=== PATIENT | male | born 1985 | race Asian ===

== ENCOUNTER 2017-10-11 09:07 | Emergency (ER) | payer MEDICAID ==
[~2017-10-11] VITALS: Ht 172.7 cm; Wt 59.1 kg
[2017-10-11] MEDS ORDERED: LEVE500T53 PO (09:13)
[2017-10-11] MEDS ORDERED: CLON1 PO (09:13)
[2017-10-11] MEDS ORDERED: ENOX40DI9 SQ (09:13)
[2017-10-11 10:32] LABS: BASOPHILS # (AUTO) 0.04 K/uL (0.00-0.20); BASOPHILS % (AUTO) 0.8 % (0.0-2.0); EOSINOPHILS # (AUTO) 0.29 K/uL (0.00-0.70); EOSINOPHILS % (AUTO) 6.02 % (1.0-6.0); HEMATOCRIT 37.7 % (41-53); HEMOGLOBIN 12.3 g/dL (13.5-17.5); LYMPHOCYTES % (AUTO) 21.3 % (22.0-44.0); MEAN CORPUSCULAR HEMOGLOBIN 26.5 pg (26.0-34.0); MEAN CORPUSCULAR HGB CONC 32.7 G/dL (31.0-37.0); MEAN CORPUSCULAR VOLUME 81 fL (80-100); MONOCYTES # (AUTO) 0.4 K/uL (0.1-1.0); MONOCYTES % (AUTO) 8.9 % (2.0-9.0); NEUTROPHILS % (AUTO) 63.1 % (40.0-70.0); PLATELET COUNT (AUTO) 255 K/uL (150-450); RED BLOOD CELL COUNT(AUTO) 4.65 MIL/uL (4.50-5.90); RED CELL DISTRIBUTION WIDTH 14.8 % (11.5-14.5); WHITE BLOOD COUNT (AUTO) 4.8 K/uL (4.5-11.0)
[2017-10-11 10:49] LABS: ANION GAP 8 mmol/L (8-16); CALCIUM, TOTAL 8.6 mg/dL (8.8-10.5); CARBON DIOXIDE 28 mmol/L (22-29); CHLORIDE 103 mmol/L (98-107); CREATININE 0.68 mg/dL (0.60-1.30); GLOMERULAR FILTR. RATE CALC > 60 mL/min (>60); POTASSIUM 4.1 mmol/L (3.5-5.1); SODIUM SERUM 139 mmol/L (136-145); UREA NITROGEN, BLOOD 15 mg/dL (7-18)
[2017-10-11 10:54] LABS: ALANINE AMINOTRANSFERASE 28 U/L (12-78); ASPARTATE AMINOTRANSFERASE 21 U/L (15-37); BILIRUBIN,TOTAL 0.2 mg/dL (0.1-1.0)
[2017-10-11 10:55] LABS: LACTIC ACID 0.9 mmol/L (0.4-2.0)
[2017-10-11 14:33] VITALS: BP 129/78
== END 2017-10-11 14:41 | disposition home or self-care (01) ==
LOC: EMS 09:08
DX: R04.2 Hemoptysis (principal); I25.2 Old myocardial infarction; Z86.11 Personal history of tuberculosis; Z88.5 Allergy status to narcotic agent; Z88.8 Allergy status to other drugs, medicaments and biological substances
CPT/HCPCS: 71020; 83605; 87015; 87040; 99285

== ENCOUNTER 2020-06-30 22:28 | Inpatient (IN) | payer MEDICAID ==
[~2020-06-30] VITALS: Ht 172.7 cm; Wt 60.8 kg
[~2020-06-30 22:28] MED LIST: ENOX80DI9 SQ; FLUO-191 PO; LEVE500T53 PO; OLAN5TAB2 PO
[2020-07-01] VITALS (13 sets, daily range): BP systolic 96–139; BP diastolic 58–89
[2020-07-01] MEDS ORDERED: ZOLPIDEM TARTRATE 10 MG TABLET PO PRN (02:00)
[2020-07-01] MEDS ORDERED: HALOPERIDOL 5 MG TABLET PO PRN (02:00)
[2020-07-01] MEDS ORDERED: LORazepam 2 MG TABLET PO PRN (02:00)
[2020-07-01] MEDS ORDERED: PNEUMOCOCCAL VACCINE POLYVALENT 0.5 ML VIAL [PPSV23] IM ONE (06:00)
[2020-07-01] MEDS ORDERED: ACETAMINOPHEN 325 MG TABLET PO PRN (08:00)
[2020-07-01] MEDS ORDERED: DOCUSATE SODIUM 100 MG CAPSULE PO PRN (08:00)
[2020-07-01] MEDS ORDERED: PETROLATUM,WHITE 28 GM JELLY TP PRN (08:00)
[2020-07-01] MEDS ORDERED: LOPERAMIDE HCL 2 MG CAPSULE PO PRN (08:00)
[2020-07-01] MEDS ORDERED: NICOTINE 14 MG/24 HOUR PATCH TD PRN (08:00)
[2020-07-01] MEDS ORDERED: MAG HYDROX/AL HYDROX/SIMETH ES 30 ML SUSPENSION UDCUP PO PRN (08:00)
[2020-07-01] MEDS ORDERED: GuaiFENesin/D-METHORPHAN [SUGAR-FREE] 200-20MG/10 ML SYRUP UDCUP PO PRN (08:00)
[2020-07-01] MEDS ORDERED: CloNIDine HCL 0.1 MG TABLET PO PRN (08:00)
[2020-07-01] MEDS ORDERED: MAGNESIUM HYDROXIDE SUSPENSION 30 ML UDCUP PO PRN (08:00)
[2020-07-01] MEDS ORDERED: ONDANSETRON HCL 4 MG TABLET PO PRN (08:00)
[2020-07-01] MEDS ORDERED: ALBUTEROL SULFATE HFA 90 MCG/PUFF 8 GM INHALER IH PRN (08:00)
[2020-07-01] MEDS ORDERED: IBUPROFEN 400 MG TABLET PO PRN (08:00)
[2020-07-01 08:30] LABS: GLUCOMETER DEV NAME(LOC) BV2S.; GLUCOSE,POINT OF CARE 128 MG/DL (70-110)
[2020-07-01] MEDS ORDERED: LevETIRAcetam 500 MG TABLET PO ONE (09:00)
[2020-07-01] MEDS ORDERED: LORazepam 2 MG/ML VIAL IM PRN (09:00)
[2020-07-01] MEDS ORDERED: LevETIRAcetam 500 MG TABLET PO SCH (09:00)
[2020-07-01] MEDS: LevETIRAcetam 500 MG TABLET PO SCH (17:03)
[2020-07-02 00:49] VITALS: BP 109/66
[2020-07-02 02:08] VITALS: BP 99/50
[2020-07-02 02:49] VITALS: BP 104/67
[2020-07-02 08:40] VITALS: BP 107/67
[2020-07-02] MEDS: LevETIRAcetam 500 MG TABLET PO SCH ×2 (09:56→20:35)
[2020-07-02 16:25] VITALS: BP 120/77
[2020-07-03 06:26] VITALS: BP 109/67
[2020-07-03] MEDS: LevETIRAcetam 500 MG TABLET PO SCH ×2 (10:04→20:28)
[2020-07-03 16:15] VITALS: BP 118/74
[2020-07-03] MEDS ORDERED: ENOXAPARIN SODIUM 80 MG/0.8 ML PF SYRINGE SQ SCH (21:00)
[2020-07-04 05:58] VITALS: BP 126/82
[2020-07-04 08:16] LABS: AMPHET/METH SCREEN,URINE NEGATIVE (NEGATIVE); APPEARANCE,URINE CLEAR (CLEAR); BARBITURATE SCREEN, URINE NEGATIVE (NEGATIVE); BENZODIAZEPINES SCREEN,URINE NEGATIVE (NEGATIVE); BILIRUBIN,URINE NEGATIVE (NEGATIVE); CANNABINOID SCREEN,URINE NEGATIVE (NEGATIVE); COCAINE SCREEN,URINE NEGATIVE (NEGATIVE); GLUCOSE, URINE (UA) NEGATIVE (NEGATIVE); KETONES,URINE NEGATIVE (NEGATIVE); LEUKOCYTE ESTERASE ,URINE NEGATIVE (NEGATIVE); METHADONE SCREEN, URINE NEGATIVE (NEGATIVE); NITRATE,URINE NEGATIVE (NEGATIVE); OCCULT BLOOD,URINE NEGATIVE (NEGATIVE); OPIATE SCREEN,URINE NEGATIVE (NEGATIVE); PH,URINE 6.5 (5.0-8.0); PROTEIN,URINE NEGATIVE (NEGATIVE); UROBILINOGEN,URINE 0.2 mg/dL (<=1.0)
[2020-07-04 08:19] LABS: PHENCYCLIDINE SCREEN,URINE NEGATIVE (NEGATIVE)
[2020-07-04 08:59] VITALS: BP 107/68
[2020-07-04] MEDS: LevETIRAcetam 500 MG TABLET PO SCH ×2 (09:31→20:49)
[2020-07-04 16:38] VITALS: BP 124/84
[2020-07-04] MEDS: RIVAROXABAN 20 MG TABLET PO SCH (17:01)
[2020-07-04] MEDS ORDERED: HYDROCORTISONE 1% 30 GM OINTMENT TP PRN (22:15)
[2020-07-05 05:32] VITALS: BP 120/86
[2020-07-05] MEDS: LevETIRAcetam 500 MG TABLET PO SCH ×2 (08:43→20:10)
[2020-07-05 08:49] VITALS: BP 96/57
[2020-07-05 16:12] VITALS: BP 121/90
[2020-07-05] MEDS: RIVAROXABAN 20 MG TABLET PO SCH (16:55)
[2020-07-05] MEDS ORDERED: LURASIDONE HCL 40 MG TABLET PO SCH (17:00)
[2020-07-06 06:20] VITALS: BP 106/71
[2020-07-06] MEDS: LevETIRAcetam 500 MG TABLET PO SCH (08:29)
[2020-07-06 09:07] VITALS: BP 115/76
[2020-07-06 16:00] VITALS: BP 122/82
[2020-07-06] MEDS ORDERED: LURA40TA2 PO (16:53)
[2020-07-06] MEDS ORDERED: RIVA20TA PO (16:54)
[2020-07-06] MEDS ORDERED: LEVE500T53 PO (16:54)
== END 2020-07-06 18:00 | disposition home or self-care (01) | DRG 754 ==
LOC: B2S 07-01 01:59
PROVIDERS: ADMIT Psychiatry & Neurology Child & Adolescent Psychiatry; ATTEND Psychiatry & Neurology Child & Adolescent Psychiatry
DX: F32.9 Major depressive disorder, single episode, unspecified (principal); F23 Brief psychotic disorder; G40.909 Epilepsy, unspecified, not intractable, without status epilepticus; F41.9 Anxiety disorder, unspecified; F11.10 Opioid abuse, uncomplicated; I25.10 Atherosclerotic heart disease of native coronary artery without angina pectoris; Z79.01 Long term (current) use of anticoagulants; Z86.15 Personal history of latent tuberculosis infection; Z86.718 Personal history of other venous thrombosis and embolism; Z79.899 Other long term (current) drug therapy; Z88.8 Allergy status to other drugs, medicaments and biological substances
CPT/HCPCS: 80307; 87081; J1650

== ENCOUNTER 2021-08-11 21:36 | Inpatient (IN) | payer MEDICAID, OTHER ==
[~2021-08-11] VITALS: Ht 172.7 cm; Wt 62.6 kg
[~2021-08-11 21:36] MED LIST changes: -ENOX80DI9 SQ; -FLUO-191 PO; +LEVE500T20 PO; -LEVE500T53 PO; +LURA40TA2 PO; -OLAN5TAB2 PO; +RIVA20TA PO; +[UNRECOGNIZED DRUG - REMARK] PO
[2021-08-11 22:25] LABS: BASOPHILS % (AUTO) 0.7 % (0.0-2.0); EOSINOPHILS % (AUTO) 0.3 % (1.0-6.0); HEMATOCRIT 37.2 % (41-53); HEMOGLOBIN 12.4 g/dL (13.5-17.5); LYMPHOCYTES # (AUTO) 1.1 K/uL (1.0-4.8); LYMPHOCYTES % (AUTO) 26.7 % (22.0-44.0); MEAN CORPUSCULAR HEMOGLOBIN 26.6 pg (26.0-34.0); MEAN CORPUSCULAR HGB CONC 33.3 G/dL (31.0-37.0); MEAN CORPUSCULAR VOLUME 80 fL (80-100); MONOCYTES # (AUTO) 0.7 K/uL (0.1-1.0); MONOCYTES % (AUTO) 16.2 % (2.0-9.0); NEUTROPHILS # (AUTO) 2.3 K/uL (1.8-7.7); NEUTROPHILS % (AUTO) 56.1 % (40.0-70.0); PLATELET COUNT (AUTO) 238 K/uL (150-450); RED BLOOD CELL COUNT(AUTO) 4.65 MIL/uL (4.50-5.90); RED CELL DISTRIBUTION WIDTH 15.5 % (11.5-14.5)
[2021-08-11 22:36] LABS: ANION GAP 11 mmol/L (8-16); CALCIUM, TOTAL 8.7 mg/dL (8.8-10.5); CARBON DIOXIDE 26 mmol/L (22-29); CHLORIDE 101 mmol/L (98-107); CREATININE 1.11 mg/dL (0.60-1.30); GLOMERULAR FILTR. RATE CALC > 60 mL/min (>60); GLUCOSE,RANDOM 101 mg/dL (70-110); POTASSIUM 4.1 mmol/L (3.5-5.1); SODIUM SERUM 138 mmol/L (136-145); UREA NITROGEN, BLOOD 35 mg/dL (7-18)
[2021-08-11 22:42] LABS: ALANINE AMINOTRANSFERASE 25 U/L (12-78); ALBUMIN 3.9 g/dL (3.4-5.0); ALKALINE PHOSPHATASE 108 U/L (46-116); ASPARTATE AMINOTRANSFERASE 32 U/L (15-37); BILIRUBIN,TOTAL 0.6 mg/dL (0.1-1.0); TOTAL PROTEIN, SERUM 8.5 g/dL (6.4-8.2)
[2021-08-11 22:43] LABS: SALICYLATE < 2.8 mg/dL (2.8-20.0)
[2021-08-11 22:56] LABS: ACETAMINOPHEN < 2 mcg/mL (10-30)
[2021-08-11 22:57] LABS: COVID AG,FIA SOURCE NASOPHARYNGEAL
[2021-08-11] MEDS ORDERED: ZOLPIDEM TARTRATE 10 MG TABLET PO PRN (23:00)
[2021-08-11] MEDS ORDERED: HALOPERIDOL 5 MG TABLET PO PRN (23:00)
[2021-08-11] MEDS ORDERED: LevETIRAcetam 500 MG TABLET PO ONE (23:15)
[2021-08-11] MEDS: LevETIRAcetam 500 MG TABLET PO ONE ×2 (23:15→23:45)
[2021-08-12 00:22] LABS: CHOL/HDL RATIO 2.1 (4.2-7.3); CHOLESTEROL 149 mg/dL (131-200); HDL CHOLESTEROL 72 mg/dL (40-60); LDL CHOL (CALC.) 71 mg/dL (0-130); TRIGLYCERIDES 31 mg/dL (15-150)
[2021-08-12 00:23] LABS: VALPROIC ACID < 3 mcg/mL (50-100)
[2021-08-12 03:02] VITALS: BP 120/80
[2021-08-12] MEDS ORDERED: DOCUSATE SODIUM 100 MG CAPSULE PO PRN (06:00)
[2021-08-12] MEDS ORDERED: PETROLATUM,WHITE 28 GM JELLY TP PRN (06:00)
[2021-08-12] MEDS ORDERED: CloNIDine HCL 0.1 MG TABLET PO PRN (06:00)
[2021-08-12] MEDS ORDERED: MAGNESIUM HYDROXIDE SUSPENSION 30 ML UDCUP PO PRN (06:00)
[2021-08-12] MEDS ORDERED: MAG HYDROX/AL HYDROX/SIMETH ES 30 ML SUSPENSION UDCUP PO PRN (06:00)
[2021-08-12] MEDS ORDERED: GuaiFENesin/D-METHORPHAN [SUGAR-FREE] 200-20MG/10 ML SYRUP UDCUP PO PRN (06:00)
[2021-08-12] MEDS ORDERED: LOPERAMIDE HCL 2 MG CAPSULE PO PRN (06:00)
[2021-08-12] MEDS ORDERED: ONDANSETRON HCL 4 MG TABLET PO PRN (06:00)
[2021-08-12] MEDS ORDERED: ALBUTEROL SULFATE HFA 90 MCG/PUFF 8 GM INHALER IH PRN (06:00)
[2021-08-12] MEDS ORDERED: NICOTINE 14 MG/24 HOUR PATCH TD PRN (06:00)
[2021-08-12] MEDS: LevETIRAcetam 500 MG TABLET PO SCH ×4 (09:00→17:00)
[2021-08-12] MEDS: RIVAROXABAN 20 MG TABLET PO SCH ×2 (16:25→17:30)
[2021-08-12] MEDS: LURASIDONE HCL 40 MG TABLET PO SCH ×2 (16:25→17:30)
[2021-08-13] MEDS: BENZOCAINE/MENTHOL LOZENGE PO PRN (06:10)
[2021-08-13] MEDS: LevETIRAcetam 500 MG TABLET PO SCH ×2 (07:56→16:01)
[2021-08-13] MEDS: LURASIDONE HCL 40 MG TABLET PO SCH (16:01)
[2021-08-13] MEDS: RIVAROXABAN 20 MG TABLET PO SCH (16:01)
[2021-08-13] MEDS: IBUPROFEN 400 MG TABLET PO PRN (19:26)
[2021-08-14] MEDS: ACETAMINOPHEN 325 MG TABLET PO PRN ×2 (00:36→19:15)
[2021-08-14] MEDS: LORazepam 2 MG TABLET PO PRN ×4 (02:23→23:57)
[2021-08-14] MEDS: LevETIRAcetam 500 MG TABLET PO SCH (08:00)
[2021-08-14] MEDS: IBUPROFEN 400 MG TABLET PO PRN ×2 (08:00→16:55)
[2021-08-14] MEDS: PredniSONE 20 MG TABLET PO SCH (11:40)
[2021-08-14] MEDS ORDERED: POTASSIUM CHLORIDE 20 MEQ ER TABLET PO ONE ×2 (14:45→18:00)
[2021-08-14 16:55] VITALS: BP 112/63
[2021-08-14] MEDS: DIVALPROEX SODIUM 500 MG DR TABLET PO SCH ×2 (17:00→20:48)
[2021-08-14] MEDS: RIVAROXABAN 20 MG TABLET PO SCH (17:14)
[2021-08-14 17:49] VITALS: BP 144/95
[2021-08-14 19:15] VITALS: BP 158/93
[2021-08-14] MEDS: CIPROFLOXACIN HCL 0.2%/HYDROCORT 1% 10 ML OTIC SUSPENSION AD SCH (20:37)
[2021-08-14] MEDS ORDERED: PRAZOSIN HCL 2 MG CAPSULE PO SCH (21:00)
[2021-08-14] MEDS ORDERED: ESCITALOPRAM OXALATE 10 MG TABLET PO SCH (21:00)
[2021-08-14] MEDS: BENZOCAINE/MENTHOL LOZENGE PO PRN (21:25)
[2021-08-14 22:17] VITALS: BP 118/72
[2021-08-15 01:32] VITALS: BP 129/89
[2021-08-15] MEDS: IBUPROFEN 400 MG TABLET PO PRN ×3 (01:34→17:51)
[2021-08-15] MEDS: DIVALPROEX SODIUM 500 MG DR TABLET PO SCH ×2 (07:54→16:48)
[2021-08-15] MEDS: PredniSONE 20 MG TABLET PO SCH (07:54)
[2021-08-15] MEDS: CIPROFLOXACIN HCL 0.2%/HYDROCORT 1% 10 ML OTIC SUSPENSION AD SCH ×3 (07:57→17:44)
[2021-08-15] MEDS ORDERED: CIPROFLOXACIN HCL 0.2%/HYDROCORT 1% 10 ML OTIC SUSPENSION AD SCH (09:00)
[2021-08-15] MEDS: LORazepam 2 MG TABLET PO PRN ×2 (10:19→17:51)
[2021-08-15] MEDS: ACETAMINOPHEN 325 MG TABLET PO PRN (10:19)
[2021-08-15] MEDS ORDERED: ACYCLOVIR 800 MG TABLET PO SCH (17:00)
[2021-08-15] MEDS: RIVAROXABAN 20 MG TABLET PO SCH (17:30)
[2021-08-16] MEDS ORDERED: ACYCLOVIR 600 MG in DEXTROSE 5%-WATER 100 ML IV SCH ×2
== END 2021-08-15 20:00 | disposition short-term general hospital (02) | DRG 753 ==
LOC: EMS 21:40 → 3EC 08-12 00:07
PROVIDERS: ADMIT Psychiatry & Neurology Child & Adolescent Psychiatry; ATTEND Psychiatry & Neurology Child & Adolescent Psychiatry
DX: F31.4 Bipolar disorder, current episode depressed, severe, without psychotic features (principal); B20 Human immunodeficiency virus [HIV] disease; R45.851 Suicidal ideations; B02.21 Postherpetic geniculate ganglionitis; F25.9 Schizoaffective disorder, unspecified; G40.909 Epilepsy, unspecified, not intractable, without status epilepticus; F31.9 Bipolar disorder, unspecified; F41.9 Anxiety disorder, unspecified; I25.10 Atherosclerotic heart disease of native coronary artery without angina pectoris; Z20.822 Contact with and (suspected) exposure to COVID-19; D64.9 Anemia, unspecified; I25.2 Old myocardial infarction; Z59.00 Homelessness unspecified; Z79.01 Long term (current) use of anticoagulants; Z85.841 Personal history of malignant neoplasm of brain; Z85.89 Personal history of malignant neoplasm of other organs and systems; Z86.11 Personal history of tuberculosis; Z86.711 Personal history of pulmonary embolism; Z86.718 Personal history of other venous thrombosis and embolism; Z86.73 Personal history of transient ischemic attack (TIA), and cerebral infarction without residual deficits; Z87.891 Personal history of nicotine dependence; Z91.19 Patient's noncompliance with other medical treatment and regimen; Z91.410 Personal history of adult physical and sexual abuse; Z88.5 Allergy status to narcotic agent; Z88.8 Allergy status to other drugs, medicaments and biological substances
CPT/HCPCS: 70450; 80053; 80061; 80164; 84132; 85025; 93005; 93970; 99285; G0480; G0481; Q0162

== ENCOUNTER 2021-08-15 20:06 | Inpatient (IN) | payer OTHER ==
[2021-08-15 20:00] VITALS: BP 128/73
[2021-08-15] MEDS ORDERED: ACYCLOVIR 600 MG in DEXTROSE 5%-WATER 100 ML IV SCH (20:30)
[2021-08-15] MEDS ORDERED: ONDANSETRON HCL 4 MG/2 ML VIAL IVP PRN (20:30)
[2021-08-15] MEDS ORDERED: BISACODYL 10 MG RECTAL RECTAL SUPPOSITORY PR PRN (20:30)
[2021-08-15] MEDS ORDERED: MAGNESIUM HYDROXIDE SUSPENSION 30 ML UDCUP PO PRN (20:30)
[2021-08-15] MEDS: ZOLPIDEM TARTRATE 5 MG TABLET PO PRN (21:36)
[2021-08-15] MEDS: PRAZOSIN HCL 2 MG CAPSULE PO SCH (21:36)
[2021-08-15] MEDS: DOCUSATE SODIUM 100 MG CAPSULE PO SCH (21:36)
[2021-08-15] MEDS: ESCITALOPRAM OXALATE 10 MG TABLET PO SCH (21:36)
[2021-08-15] MEDS: DIVALPROEX SODIUM 500 MG DR TABLET PO SCH (21:36)
[2021-08-15] MEDS: ACETAMINOPHEN 325 MG TABLET PO PRN (21:36)
[2021-08-15] MEDS: CIPROFLOXACIN HCL 0.2%/HYDROCORT 1% 10 ML OTIC SUSPENSION AD SCH (21:37)
[2021-08-15] MEDS ORDERED: SODIUM CHLORIDE 0.9% 500 ML IV ONE (21:39)
[2021-08-15] MEDS ORDERED: CefTRIAXone 1 GM/DEXTROSE 50 ML IV SCH (22:00)
[2021-08-15 23:20] VITALS: BP 129/76
[2021-08-15] MEDS: ACYCLOVIR 600 MG in DEXTROSE 5%-WATER 100 ML IV SCH (23:36)
[2021-08-15] MEDS: VANCOMYCIN HCL 750 MG in DEXTROSE 5%-WATER 250 ML IV SCH (23:36)
[2021-08-16] MEDS ORDERED: HEPARIN SODIUM,PORCINE 5,000 UNITS/ML VIAL SQ SCH
[2021-08-16] MEDS: PIPERACILLIN/TAZO 3.375 GM/D5W 50 ML IV SCH ×4 (03:13→20:02)
[2021-08-16] MEDS: ACETAMINOPHEN 325 MG TABLET PO PRN (04:23)
[2021-08-16] MEDS: PANTOPRAZOLE SODIUM 40 MG DR TABLET PO SCH (08:27)
[2021-08-16] MEDS: DIVALPROEX SODIUM 500 MG DR TABLET PO SCH ×2 (08:27→20:01)
[2021-08-16] MEDS: DOCUSATE SODIUM 100 MG CAPSULE PO SCH ×3 (08:34→20:49)
[2021-08-16] MEDS ORDERED: BICTEGRAV/EMTRICIT/TENOFOV ALA 50-200-25 MG TABLET PO SCH (09:00)
[2021-08-16 10:50] LABS: BASOPHILS % (AUTO) 1.5 % (0.0-2.0); EOSINOPHILS % (AUTO) 0.6 % (1.0-6.0); HEMATOCRIT 38.4 % (41-53); HEMOGLOBIN 12.6 g/dL (13.5-17.5); LYMPHOCYTES # (AUTO) 0.7 K/uL (1.0-4.8); LYMPHOCYTES % (AUTO) 19.5 % (22.0-44.0); MEAN CORPUSCULAR HEMOGLOBIN 26.6 pg (26.0-34.0); MEAN CORPUSCULAR HGB CONC 32.9 G/dL (31.0-37.0); MEAN CORPUSCULAR VOLUME 81 fL (80-100); MONOCYTES # (AUTO) 0.4 K/uL (0.1-1.0); MONOCYTES % (AUTO) 9.6 % (2.0-9.0); NEUTROPHILS # (AUTO) 2.6 K/uL (1.8-7.7); NEUTROPHILS % (AUTO) 68.8 % (40.0-70.0); PLATELET COUNT (AUTO) 181 K/uL (150-450); RED BLOOD CELL COUNT(AUTO) 4.76 MIL/uL (4.50-5.90); RED CELL DISTRIBUTION WIDTH 15.1 % (11.5-14.5)
[2021-08-16 11:31] LABS: ALANINE AMINOTRANSFERASE 22 U/L (12-78); ALBUMIN 3.1 g/dL (3.4-5.0); ALKALINE PHOSPHATASE 109 U/L (46-116); ANION GAP 9 mmol/L (8-16); ASPARTATE AMINOTRANSFERASE 15 U/L (15-37); BILIRUBIN,TOTAL 0.2 mg/dL (0.1-1.0); CALCIUM, TOTAL 8.8 mg/dL (8.8-10.5); CARBON DIOXIDE 30 mmol/L (22-29); CHLORIDE 102 mmol/L (98-107); CREATININE 0.78 mg/dL (0.60-1.30); GLOMERULAR FILTR. RATE CALC > 60 mL/min (>60); GLUCOSE,RANDOM 106 mg/dL (70-110); POTASSIUM 3.9 mmol/L (3.5-5.1); SODIUM SERUM 141 mmol/L (136-145); TOTAL PROTEIN, SERUM 8.1 g/dL (6.4-8.2); UREA NITROGEN, BLOOD 10 mg/dL (7-18)
[2021-08-16 12:21] VITALS: BP 132/68
[2021-08-16 12:24] LABS: C-REACTIVE PROTEIN QUANT < 0.05 mg/dL (0.00-0.30)
[2021-08-16] MEDS: VANCOMYCIN HCL 750 MG in DEXTROSE 5%-WATER 250 ML IV SCH ×2 (13:37→18:21)
[2021-08-16] MEDS: ACYCLOVIR 600 MG in DEXTROSE 5%-WATER 100 ML IV SCH ×3 (13:37→23:42)
[2021-08-16] MEDS: CIPROFLOXACIN HCL 0.2%/HYDROCORT 1% 10 ML OTIC SUSPENSION AD SCH ×3 (13:38→20:01)
[2021-08-16] MEDS: MethylPREDNISolone SOD SUCC 40 MG/ML VIAL IVP SCH (13:38)
[2021-08-16] MEDS ORDERED: ValACYclovir HCL 500 MG TABLET PO SCH (16:00)
[2021-08-16] MEDS ORDERED: VALGANCICLOVIR HCL PO SCH ×2 (16:00)
[2021-08-16 16:27] VITALS: BP 116/80
[2021-08-16] MEDS ORDERED: RIVAROXABAN 20 MG TABLET PO SCH (18:00)
[2021-08-16] MEDS: PRAZOSIN HCL 2 MG CAPSULE PO SCH (20:01)
[2021-08-16] MEDS: ESCITALOPRAM OXALATE 10 MG TABLET PO SCH (20:01)
[2021-08-16 20:15] VITALS: BP 121/86
[2021-08-17] MEDS: VANCOMYCIN HCL 750 MG in DEXTROSE 5%-WATER 250 ML IV SCH ×3 (00:41→16:56)
[2021-08-17] MEDS: PIPERACILLIN/TAZO 3.375 GM/D5W 50 ML IV SCH ×4 (03:41→20:39)
[2021-08-17] MEDS: ACYCLOVIR 600 MG in DEXTROSE 5%-WATER 100 ML IV SCH ×3 (07:45→23:06)
[2021-08-17 08:09] VITALS: BP 127/78
[2021-08-17] MEDS ORDERED: VANCOMYCIN HCL 500 MG in DEXTROSE 5%-WATER 100 ML IV ONE (09:00)
[2021-08-17] MEDS: CIPROFLOXACIN HCL 0.2%/HYDROCORT 1% 10 ML OTIC SUSPENSION AD SCH ×3 (09:32→20:38)
[2021-08-17] MEDS: DIVALPROEX SODIUM 500 MG DR TABLET PO SCH ×2 (09:32→20:38)
[2021-08-17] MEDS: PANTOPRAZOLE SODIUM 40 MG DR TABLET PO SCH (09:32)
[2021-08-17] MEDS: MethylPREDNISolone SOD SUCC 40 MG/ML VIAL IVP SCH (09:33)
[2021-08-17] MEDS ORDERED: SODIUM CHLORIDE 0.9% 1,000 ML ONE (09:47)
[2021-08-17 10:07] VITALS: BP 116/58
[2021-08-17 12:55] LABS: BASOPHILS % (AUTO) 0.4 % (0.0-2.0); EOSINOPHILS % (AUTO) 1.8 % (1.0-6.0); HEMATOCRIT 37.4 % (41-53); HEMOGLOBIN 12.3 g/dL (13.5-17.5); LYMPHOCYTES # (AUTO) 0.6 K/uL (1.0-4.8); LYMPHOCYTES % (AUTO) 13.7 % (22.0-44.0); MEAN CORPUSCULAR HEMOGLOBIN 26.5 pg (26.0-34.0); MEAN CORPUSCULAR HGB CONC 32.9 G/dL (31.0-37.0); MEAN CORPUSCULAR VOLUME 81 fL (80-100); MONOCYTES # (AUTO) 0.3 K/uL (0.1-1.0); MONOCYTES % (AUTO) 5.8 % (2.0-9.0); NEUTROPHILS # (AUTO) 3.4 K/uL (1.8-7.7); NEUTROPHILS % (AUTO) 78.3 % (40.0-70.0); PLATELET COUNT (AUTO) 215 K/uL (150-450); RED BLOOD CELL COUNT(AUTO) 4.64 MIL/uL (4.50-5.90); RED CELL DISTRIBUTION WIDTH 15.2 % (11.5-14.5)
[2021-08-17 13:16] LABS: ANION GAP 10 mmol/L (8-16); CALCIUM, TOTAL 8.6 mg/dL (8.8-10.5); CARBON DIOXIDE 29 mmol/L (22-29); CHLORIDE 101 mmol/L (98-107); CREATININE 0.93 mg/dL (0.60-1.30); GLOMERULAR FILTR. RATE CALC > 60 mL/min (>60); GLUCOSE,RANDOM 115 mg/dL (70-110); POTASSIUM 4.1 mmol/L (3.5-5.1); SODIUM SERUM 140 mmol/L (136-145); UREA NITROGEN, BLOOD 13 mg/dL (7-18); VANCOMYCIN,RANDOM 35.5 mcg/mL (25.0-50.0)
[2021-08-17 19:39] VITALS: BP 111/65
[2021-08-17] MEDS: PRAZOSIN HCL 2 MG CAPSULE PO SCH (20:39)
[2021-08-17] MEDS: DOCUSATE SODIUM 100 MG CAPSULE PO SCH (20:39)
[2021-08-17] MEDS: ESCITALOPRAM OXALATE 10 MG TABLET PO SCH (20:39)
[2021-08-18] MEDS: VANCOMYCIN HCL 750 MG in DEXTROSE 5%-WATER 250 ML IV SCH (00:50)
[2021-08-18] MEDS: PIPERACILLIN/TAZO 3.375 GM/D5W 50 ML IV SCH ×4 (03:20→22:13)
[2021-08-18 03:42] VITALS: BP 108/66
[2021-08-18 06:55] LABS: BASOPHILS % (AUTO) 0.6 % (0.0-2.0); EOSINOPHILS % (AUTO) 1.3 % (1.0-6.0); HEMATOCRIT 35.6 % (41-53); HEMOGLOBIN 11.6 g/dL (13.5-17.5); LYMPHOCYTES # (AUTO) 1.2 K/uL (1.0-4.8); LYMPHOCYTES % (AUTO) 27.2 % (22.0-44.0); MEAN CORPUSCULAR HEMOGLOBIN 26.3 pg (26.0-34.0); MEAN CORPUSCULAR HGB CONC 32.5 G/dL (31.0-37.0); MEAN CORPUSCULAR VOLUME 81 fL (80-100); MONOCYTES # (AUTO) 0.6 K/uL (0.1-1.0); MONOCYTES % (AUTO) 15.2 % (2.0-9.0); NEUTROPHILS # (AUTO) 2.4 K/uL (1.8-7.7); NEUTROPHILS % (AUTO) 55.7 % (40.0-70.0); RED CELL DISTRIBUTION WIDTH 15.1 % (11.5-14.5)
[2021-08-18 06:58] LABS: ANION GAP 8 mmol/L (8-16); CALCIUM, TOTAL 8.6 mg/dL (8.8-10.5); CARBON DIOXIDE 29 mmol/L (22-29); CHLORIDE 103 mmol/L (98-107); CREATININE 0.86 mg/dL (0.60-1.30); GLOMERULAR FILTR. RATE CALC > 60 mL/min (>60); GLUCOSE,RANDOM 98 mg/dL (70-110); POTASSIUM 3.9 mmol/L (3.5-5.1); SODIUM SERUM 140 mmol/L (136-145); UREA NITROGEN, BLOOD 18 mg/dL (7-18); VANCOMYCIN,RANDOM 17.9 mcg/mL (25.0-50.0)
[2021-08-18 07:18] LABS: PLATELET COUNT (AUTO) 202 K/uL (150-450)
[2021-08-18] MEDS: ACYCLOVIR 600 MG in DEXTROSE 5%-WATER 100 ML IV SCH ×3 (07:28→23:15)
[2021-08-18 08:13] VITALS: BP 110/72
[2021-08-18] MEDS: PANTOPRAZOLE SODIUM 40 MG DR TABLET PO SCH (08:46)
[2021-08-18] MEDS: MethylPREDNISolone SOD SUCC 40 MG/ML VIAL IVP SCH (08:46)
[2021-08-18] MEDS: DIVALPROEX SODIUM 500 MG DR TABLET PO SCH ×2 (08:46→20:12)
[2021-08-18] MEDS: DOCUSATE SODIUM 100 MG CAPSULE PO SCH ×2 (08:46→21:00)
[2021-08-18] MEDS: CIPROFLOXACIN HCL 0.2%/HYDROCORT 1% 10 ML OTIC SUSPENSION AD SCH ×3 (08:47→20:23)
[2021-08-18] MEDS: VANCOMYCIN HCL 1 GM/D5% WATER 200 ML IV SCH ×2 (08:50→17:31)
[2021-08-18] MEDS: ACETAMINOPHEN 325 MG TABLET PO PRN ×2 (09:14→22:15)
[2021-08-18 15:06] VITALS: BP 128/78
[2021-08-18 19:41] VITALS: BP 123/76
[2021-08-18] MEDS: ESCITALOPRAM OXALATE 10 MG TABLET PO SCH (20:12)
[2021-08-18] MEDS: PRAZOSIN HCL 2 MG CAPSULE PO SCH (20:12)
[2021-08-18] MEDS: ZOLPIDEM TARTRATE 5 MG TABLET PO PRN (23:14)
[2021-08-19] MEDS: VANCOMYCIN HCL 1 GM/D5% WATER 200 ML IV SCH ×3 (00:49→16:30)
[2021-08-19] MEDS: PIPERACILLIN/TAZO 3.375 GM/D5W 50 ML IV SCH ×4 (03:09→23:16)
[2021-08-19 04:56] VITALS: BP 110/71
[2021-08-19 06:29] LABS: ANION GAP 7 mmol/L (8-16); CALCIUM, TOTAL 8.1 mg/dL (8.8-10.5); CARBON DIOXIDE 29 mmol/L (22-29); CHLORIDE 106 mmol/L (98-107); CREATININE 0.96 mg/dL (0.60-1.30); GLOMERULAR FILTR. RATE CALC > 60 mL/min (>60); GLUCOSE,RANDOM 113 mg/dL (70-110); POTASSIUM 3.7 mmol/L (3.5-5.1); SODIUM SERUM 142 mmol/L (136-145); UREA NITROGEN, BLOOD 23 mg/dL (7-18)
[2021-08-19] MEDS ORDERED: SODIUM CHLORIDE 0.9% 250 ML IV ONE (07:55)
[2021-08-19] MEDS: ACYCLOVIR 600 MG in DEXTROSE 5%-WATER 100 ML IV SCH (07:59)
[2021-08-19 08:21] VITALS: BP 108/64
[2021-08-19] MEDS: DOCUSATE SODIUM 100 MG CAPSULE PO SCH ×2 (09:00→20:57)
[2021-08-19] MEDS ORDERED: GADOTERATE MEGLUMINE 10 MMOL/20 ML VIAL IVP ONE (09:06)
[2021-08-19] MEDS: MethylPREDNISolone SOD SUCC 40 MG/ML VIAL IVP SCH (09:15)
[2021-08-19] MEDS: DIVALPROEX SODIUM 500 MG DR TABLET PO SCH ×2 (09:16→20:56)
[2021-08-19] MEDS: PANTOPRAZOLE SODIUM 40 MG DR TABLET PO SCH (09:16)
[2021-08-19] MEDS: CIPROFLOXACIN HCL 0.2%/HYDROCORT 1% 10 ML OTIC SUSPENSION AD SCH ×3 (09:16→20:57)
[2021-08-19 15:20] VITALS: BP 111/77
[2021-08-19] MEDS: ACYCLOVIR 700 MG in DEXTROSE 5%-WATER 100 ML IV SCH ×2 (15:36→23:48)
[2021-08-19 17:45] VITALS: BP 118/75
[2021-08-19 18:44] VITALS: BP 125/76
[2021-08-19 20:12] LABS: COVID AG,FIA SOURCE NASAL SWAB
[2021-08-19 20:50] VITALS: BP 118/81
[2021-08-19] MEDS: ESCITALOPRAM OXALATE 10 MG TABLET PO SCH (20:56)
[2021-08-19] MEDS: PRAZOSIN HCL 2 MG CAPSULE PO SCH (20:56)
[2021-08-20] MEDS: VANCOMYCIN HCL 1 GM/D5% WATER 200 ML IV SCH (00:53)
[2021-08-20 05:00] VITALS: BP 116/79
[2021-08-20] MEDS: PIPERACILLIN/TAZO 3.375 GM/D5W 50 ML IV SCH (05:27)
[2021-08-20 06:59] LABS: ANION GAP 6 mmol/L (8-16); CALCIUM, TOTAL 8.2 mg/dL (8.8-10.5); CARBON DIOXIDE 30 mmol/L (22-29); CHLORIDE 105 mmol/L (98-107); CREATININE 0.75 mg/dL (0.60-1.30); GLOMERULAR FILTR. RATE CALC > 60 mL/min (>60); GLUCOSE,RANDOM 97 mg/dL (70-110); POTASSIUM 3.6 mmol/L (3.5-5.1); SODIUM SERUM 141 mmol/L (136-145); UREA NITROGEN, BLOOD 18 mg/dL (7-18)
[2021-08-20 07:56] VITALS: BP 131/76
[2021-08-20] MEDS: MethylPREDNISolone SOD SUCC 40 MG/ML VIAL IVP SCH (08:23)
[2021-08-20] MEDS: CIPROFLOXACIN HCL 0.2%/HYDROCORT 1% 10 ML OTIC SUSPENSION AD SCH (08:23)
[2021-08-20] MEDS: ACYCLOVIR 700 MG in DEXTROSE 5%-WATER 100 ML IV SCH (08:23)
[2021-08-20] MEDS: PANTOPRAZOLE SODIUM 40 MG DR TABLET PO SCH (08:23)
[2021-08-20] MEDS: DIVALPROEX SODIUM 500 MG DR TABLET PO SCH (08:23)
[2021-08-20] MEDS: DOCUSATE SODIUM 100 MG CAPSULE PO SCH (08:24)
== END 2021-08-20 11:35 | disposition left against medical advice (07) | DRG 892 ==
LOC: 6N 20:24
PROVIDERS: ADMIT Internal Medicine; ATTEND Internal Medicine
DX: B20 Human immunodeficiency virus [HIV] disease (principal); R65.10 Systemic inflammatory response syndrome (SIRS) of non-infectious origin without acute organ dysfunction; E44.0 Moderate protein-calorie malnutrition; B02.21 Postherpetic geniculate ganglionitis; G40.909 Epilepsy, unspecified, not intractable, without status epilepticus; Z53.29 Procedure and treatment not carried out because of patient's decision for other reasons; F31.9 Bipolar disorder, unspecified; F41.9 Anxiety disorder, unspecified; Z20.822 Contact with and (suspected) exposure to COVID-19; Z88.8 Allergy status to other drugs, medicaments and biological substances; Z59.00 Homelessness unspecified; Z86.61 Personal history of infections of the central nervous system; Z86.711 Personal history of pulmonary embolism; Z85.841 Personal history of malignant neoplasm of brain; Z86.718 Personal history of other venous thrombosis and embolism; Z91.19 Patient's noncompliance with other medical treatment and regimen; Z68.22 Body mass index [BMI] 22.0-22.9, adult; Z88.6 Allergy status to analgesic agent
CPT/HCPCS: 36245; 36569; 70543; 70553; 76937; 80048; 80053; 80202; 84145; 85025; 86140; 86361; 86403; 87040; 87081; J0133; J0696; J2543; J2920; J3370; J7030; J7040; J7050; J7060; Q9967

== ENCOUNTER 2023-10-03 05:03 | Emergency (ER) | payer MEDICAID, OTHER ==
[~2023-10-03] VITALS: Ht 172.7 cm; Wt 70.0 kg
[2023-10-03 05:16] VITALS: BP 155/94; PULSE 116; RESP 16; TEMP 99.7
[2023-10-03] MEDS ORDERED: ONDANSETRON HCL 4 MG/2 ML VIAL IVP ONE (05:30)
[2023-10-03] MEDS ORDERED: SODIUM CHLORIDE 0.9% 1,000 ML IV ONE (05:30)
[2023-10-03] MEDS ORDERED: KETOROLAC TROMETHAMINE 30 MG/ML VIAL IVP ONE (05:30)
[2023-10-03 05:58] LABS: BASOPHILS % (AUTO) 0.5 % (0.0-2.0); EOSINOPHILS % (AUTO) 0.2 % (1.0-6.0); HEMATOCRIT 37.2 % (41-53); HEMOGLOBIN 12.4 g/dL (13.5-17.5); LYMPHOCYTES % (AUTO) 20.9 % (22.0-44.0); MEAN CORPUSCULAR HEMOGLOBIN 26.9 pg (26.0-34.0); MEAN CORPUSCULAR HGB CONC 33.2 G/dL (31.0-37.0); MEAN CORPUSCULAR VOLUME 81 fL (80-100); MONOCYTES # (AUTO) 0.6 K/uL (0.1-1.0); MONOCYTES % (AUTO) 13.3 % (2.0-9.0); NEUTROPHILS % (AUTO) 65.1 % (40.0-70.0); PLATELET COUNT (AUTO) 259 K/uL (150-450); RED CELL DISTRIBUTION WIDTH 14.5 % (11.5-14.5); WHITE BLOOD COUNT (AUTO) 4.6 K/uL (4.5-11.0)
[2023-10-03 06:04] LABS: ANION GAP 9 mmol/L (8-16); CALCIUM, TOTAL 8.6 mg/dL (8.8-10.5); CARBON DIOXIDE 29 mmol/L (22-29); CHLORIDE 98 mmol/L (98-107); CREATININE 0.97 mg/dL (0.60-1.30); GLOMERULAR FILTR. RATE CALC > 60 mL/min (>60); GLUCOSE,RANDOM 99 mg/dL (70-110); POTASSIUM 4.2 mmol/L (3.5-5.1); SODIUM SERUM 136 mmol/L (136-145); UREA NITROGEN, BLOOD 19 mg/dL (7-18)
[2023-10-03] MEDS ORDERED: LevETIRAcetam 500 MG in DEXTROSE 5%-WATER 100 ML IV ONE (06:45)
[2023-10-03] MEDS ORDERED: LEVE500T8 PO (08:25)
== END 2023-10-03 08:35 | disposition home or self-care (01) ==
LOC: EMS 05:05
DX: E86.0 Dehydration (principal); R11.2 Nausea with vomiting, unspecified; F32.A Depression, unspecified; I25.2 Old myocardial infarction; I82.409 Acute embolism and thrombosis of unspecified deep veins of unspecified lower extremity; F12.90 Cannabis use, unspecified, uncomplicated; F17.200 Nicotine dependence, unspecified, uncomplicated; Z86.73 Personal history of transient ischemic attack (TIA), and cerebral infarction without residual deficits; Z85.9 Personal history of malignant neoplasm, unspecified
CPT/HCPCS: 80048; 85025; 36415; 99284; 96365; 96375; J1885; J2405; J0712; J7060

== ENCOUNTER 2024-04-10 10:31 | Inpatient (IN) | payer MEDICAID, OTHER ==
[~2024-04-10] VITALS: Ht 172.7 cm; Wt 61.7 kg
[~2024-04-10 10:31] MED LIST changes: +BICT1TAB PO; -LEVE500T20 PO; +LEVE500T8 PO; -LURA40TA2 PO; -RIVA20TA PO; +TOPI50TA PO; -[UNRECOGNIZED DRUG - REMARK] PO
[2024-04-10] MEDS ORDERED: ZOLPIDEM TARTRATE 10 MG TABLET PO PRN (13:15)
[2024-04-10] MEDS ORDERED: QUEtiapine FUMARATE 100 MG TABLET PO PRN (13:15)
[2024-04-10] MEDS: LevETIRAcetam 500 MG TABLET PO ONE (13:42)
[2024-04-10] MEDS: LORazepam 2 MG TABLET PO ONE (13:42)
[2024-04-10] MEDS: BICTEGRAV/EMTRICIT/TENOFOV ALA 50-200-25 MG TABLET PO ONE (14:12)
[2024-04-10 18:26] LABS: COVID AG,FIA SOURCE NASAL SWAB
[2024-04-10 19:15] LABS: SARS-COV2 (COVID) ANTIGEN,FIA Negative (Negative)
[2024-04-10 21:55] LABS: APPEARANCE,URINE CLEAR (CLEAR); BILIRUBIN,URINE NEGATIVE (NEGATIVE); COLOR,URINE YELLOW (YELLOW); GLUCOSE, URINE (UA) NEGATIVE (NEGATIVE); KETONES,URINE TRACE mg/dL (NEGATIVE); LEUKOCYTE ESTERASE ,URINE NEGATIVE (NEGATIVE); NITRATE,URINE NEGATIVE (NEGATIVE); OCCULT BLOOD,URINE NEGATIVE (NEGATIVE); PH,URINE 5.5 (5.0-8.0); PROTEIN,URINE TRACE mg/dL (NEGATIVE); SPECIFIC GRAVITIY, URINE 1.034 (1.003-1.030); UROBILINOGEN,URINE <=1.0 mg/dL (<=1.0)
[2024-04-10 22:00] VITALS: BP 121/78; PULSE 100; RESP 18; TEMP 98; O2SAT 98
[2024-04-11] MEDS ORDERED: PNEUMOCOCCAL VACCINE POLYVALENT 0.5 ML SYRINGE [PPSV23] IM. ONE (02:45)
[2024-04-11] MEDS ORDERED: GuaiFENesin/D-METHORPHAN [SUGAR-FREE] 200-20MG/10 ML SYRUP UDCUP PO PRN (06:30)
[2024-04-11] MEDS ORDERED: CloNIDine HCL 0.1 MG TABLET PO PRN (06:30)
[2024-04-11] MEDS ORDERED: ONDANSETRON HCL 4 MG TABLET PO PRN (06:30)
[2024-04-11] MEDS ORDERED: ALBUTEROL SULFATE HFA 90 MCG/PUFF 8 GM INHALER IH PRN (06:30)
[2024-04-11] MEDS ORDERED: ACETAMINOPHEN 325 MG TABLET PO PRN (06:30)
[2024-04-11] MEDS ORDERED: MAG HYDROX/ALUMINUM HYD/SIMETH ES 30 ML SUSPENSION UDCUP PO PRN (06:30)
[2024-04-11] MEDS ORDERED: MAGNESIUM HYDROXIDE SUSPENSION 30 ML UDCUP PO PRN (06:30)
[2024-04-11] MEDS ORDERED: LOPERAMIDE HCL 2 MG CAPSULE PO PRN (06:30)
[2024-04-11] MEDS ORDERED: DOCUSATE SODIUM 100 MG CAPSULE PO PRN (06:30)
[2024-04-11] MEDS ORDERED: PETROLATUM,WHITE 28 GM JELLY TP PRN (06:30)
[2024-04-11] MEDS ORDERED: IBUPROFEN 400 MG TABLET PO PRN (06:30)
[2024-04-11] MEDS ORDERED: NICOTINE 14 MG/24 HOUR PATCH TD PRN (06:30)
[2024-04-11 09:30] LABS: BASOPHILS % (AUTO) 0.4 % (0.0-2.0); EOSINOPHILS % (AUTO) 3.5 % (1.0-6.0); HEMATOCRIT 34.7 % (41-53); HEMOGLOBIN 11.6 g/dL (13.5-17.5); LYMPHOCYTES # (AUTO) 0.9 K/uL (1.0-4.8); MEAN CORPUSCULAR HEMOGLOBIN 27.3 pg (26.0-34.0); MEAN CORPUSCULAR HGB CONC 33.4 G/dL (31.0-37.0); MEAN CORPUSCULAR VOLUME 82 fL (80-100); MONOCYTES # (AUTO) 0.4 K/uL (0.1-1.0); MONOCYTES % (AUTO) 14.5 % (2.0-9.0); NEUTROPHILS # (AUTO) 1.6 K/uL (1.8-7.7); NEUTROPHILS % (AUTO) 52.6 % (40.0-70.0); PLATELET COUNT (AUTO) 350 K/uL (150-450); RED BLOOD CELL COUNT(AUTO) 4.24 MIL/uL (4.50-5.90); RED CELL DISTRIBUTION WIDTH 16.5 % (11.5-14.5); WHITE BLOOD COUNT (AUTO) 3.1 K/uL (4.5-11.0)
[2024-04-11 09:39] VITALS: BP 123/73; PULSE 96; RESP 19; TEMP 97; O2SAT 97
[2024-04-11] MEDS: LevETIRAcetam 500 MG TABLET PO SCH (10:17)
[2024-04-11] MEDS ORDERED: PRAZ2CAP2 PO (11:04)
[2024-04-11] MEDS: PARoxetine HCL 20 MG TABLET PO SCH (14:58)
[2024-04-11] MEDS: BICTEGRAV/EMTRICIT/TENOFOV ALA 50-200-25 MG TABLET PO SCH (14:58)
[2024-04-11] MEDS: TOPIRAMATE 25 MG TABLET PO SCH (17:00)
[2024-04-11] MEDS: BACITRACIN 28 GM OINTMENT TP SCH (17:00)
[2024-04-11 20:15] VITALS: BP 100/60; PULSE 73; RESP 18; TEMP 98.4; O2SAT 98
[2024-04-11] MEDS: PRAZOSIN HCL 1 MG CAPSULE PO SCH (20:27)
[2024-04-12 10:31] VITALS: BP 114/71; PULSE 71; RESP 19; TEMP 98.6; O2SAT 97
[2024-04-12 15:38] LABS: HEMOGLOBIN A1C 5.5 % (3.8-5.6)
[2024-04-12 15:53] LABS: THYROID STIMULATING HORMONE 0.73 uIU/mL (0.36-3.74)
== END 2024-04-12 16:30 | disposition home or self-care (01) | DRG 750 ==
LOC: EMS 10:31 → 3EI 21:19
PROVIDERS: ADMIT Psychiatry & Neurology Psychiatry; ATTEND Psychiatry & Neurology Psychiatry
PROC: GZHZZZZ Group Psychotherapy (ICD-10-PCS; principal; 2024-04-11)
DX: F25.1 Schizoaffective disorder, depressive type (principal); B20 Human immunodeficiency virus [HIV] disease; R45.851 Suicidal ideations; G40.909 Epilepsy, unspecified, not intractable, without status epilepticus; F17.210 Nicotine dependence, cigarettes, uncomplicated; F15.10 Other stimulant abuse, uncomplicated; F43.12 Post-traumatic stress disorder, chronic; Z20.822 Contact with and (suspected) exposure to COVID-19; I25.10 Atherosclerotic heart disease of native coronary artery without angina pectoris; G47.00 Insomnia, unspecified; D64.9 Anemia, unspecified; Z88.5 Allergy status to narcotic agent; Z59.00 Homelessness unspecified; Z91.51 Personal history of suicidal behavior; Z79.899 Other long term (current) drug therapy; Z85.038 Personal history of other malignant neoplasm of large intestine; Z85.841 Personal history of malignant neoplasm of brain; Z86.15 Personal history of latent tuberculosis infection; Z86.73 Personal history of transient ischemic attack (TIA), and cerebral infarction without residual deficits; Z88.8 Allergy status to other drugs, medicaments and biological substances; Z86.718 Personal history of other venous thrombosis and embolism; I25.2 Old myocardial infarction; Z86.711 Personal history of pulmonary embolism
CPT/HCPCS: 81003; 83036; 83880; 84443; 85025; 99285; Q9967

== ENCOUNTER 2025-05-28 22:50 | Emergency (ER) | payer MEDICAID ==
[~2025-05-28] VITALS: Ht 172.7 cm; Wt 68.2 kg
[~2025-05-28 22:50] MED LIST changes: +ALBU2TAB46 PO; +ASPI-1450 PO; +FLUT16SP NASAL; +LEVE-71 PO; -LEVE500T8 PO; +MIRT-89 PO; +RISP-31 PO; +RIVA20TA PO; +SULF-261 PO; -TOPI50TA PO
[2025-05-28 22:54] VITALS: TEMP 97.7
[2025-05-29 00:05] VITALS: BP 157/118; PULSE 82; RESP 18; O2SAT 94
[2025-05-29 00:54] LABS: CALCIUM, TOTAL 8.8 mg/dL (8.8-10.5); CREATININE 0.80 mg/dL (0.60-1.30); GLOMERULAR FILTR. RATE CALC > 60 mL/min (>60); GLUCOSE,RANDOM 100 mg/dL (70-110); SODIUM SERUM 139 mmol/L (136-145); UREA NITROGEN, BLOOD 14 mg/dL (7-18)
[2025-05-29 00:56] LABS: PLATELET COUNT (AUTO) 318 K/uL (150-450); RED BLOOD CELL COUNT(AUTO) 4.32 MIL/uL (4.50-5.90); RED CELL DISTRIBUTION WIDTH 15.2 % (11.5-14.5); WHITE BLOOD COUNT (AUTO) 7.7 K/uL (4.5-11.0)
== END 2025-05-29 06:03 | disposition home or self-care (01) ==
LOC: EMS 22:55
DX: F25.9 Schizoaffective disorder, unspecified (principal); F19.10 Other psychoactive substance abuse, uncomplicated; F32.A Depression, unspecified; G40.909 Epilepsy, unspecified, not intractable, without status epilepticus; I10 Essential (primary) hypertension; G89.29 Other chronic pain; F11.90 Opioid use, unspecified, uncomplicated; F15.90 Other stimulant use, unspecified, uncomplicated; F17.210 Nicotine dependence, cigarettes, uncomplicated; Z95.5 Presence of coronary angioplasty implant and graft; Z88.5 Allergy status to narcotic agent; Z86.73 Personal history of transient ischemic attack (TIA), and cerebral infarction without residual deficits; Z79.82 Long term (current) use of aspirin; Z79.899 Other long term (current) drug therapy
CPT/HCPCS: 99283; 80048; 85025; 36415; G0480